=== PATIENT | male | born 1940 | race Caucasian/White ===

== ENCOUNTER 2017-09-05 13:07 | Outpatient (CLI) ==
--- NOTE | 2017-09-05 13:51 | US ---
EXAM: ULTRASOUND CAROTID DUPLEX, BILATERAL HISTORY: Dizziness FINDINGS: Elmore-scale ultrasound, color Doppler and spectral analysis was performed. Velocities are in meters per second. By elmore scale and color Doppler imaging, there were regions of heterogeneous plaque formation identif ied within the carotid bulbs and internal carotid arteries. These regions of plaque appeared to summer in easily less than 50% vessel diameter. RIGHT: External carotid artery peak systolic velocity: 0.9/0.1 Common carotid artery peak systolic velocity/end diastolic velocity: 0.8/0.2 Internal carotid artery peak systolic velocity: 0.7 ICA/CCA peak systolic velocity ratio: 0.8 ICA end diastolic velocity: 0.3 LEFT: External carotid artery peak systolic velocity: 0.9/0.1 Common carotid artery peak systolic velocity/end diastolic velocity: 0.7/0.2 Internal carotid artery peak systolic velocity: 0.6 ICA/CCA peak systolic velocity ratio: 0.8 ICA end diastolic velocity: 0.2 The right and left vertebral arteries were antegrade. IMPRESSION: 1. By elmore scale and color Doppler imaging, there were regions of heterogeneous plaque formation roxanne ntified within the carotid bulbs and internal carotid arteries. These regions of plaque appeared to remain easily less than 50% vessel diameter. 2. Internal carotid artery peak systolic velocities and ICA/CCA peak systolic velocity ratios indica te no hemodynamically significant stenosis bilaterally. 3. Both vertebral arteries were antegrade.
== END 2017-09-05 13:08 | disposition home or self-care (01) ==
LOC: RAD 13:07
PROVIDERS: ATTEND Family Medicine
DX: R09.89 Other specified symptoms and signs involving the circulatory and respiratory systems (principal)

== ENCOUNTER 2017-10-13 08:42 | Outpatient (CLI) ==
--- NOTE | 2017-10-13 12:06 | DI ---
EXAM: Single contrast esophagram. History: Dysphagia. Technique: Patient was given oral barium. Multiple spot films of the esophagus and gastroesophageal junction were obtained in various projections. Findings: Course of the esophagus is within normal limits. No mucosal lesions or filling defects id entified. No extravasation of contrast material. Large hiatal hernia. Gastroesophageal reflux was observed during the course of this examination. Impression: Large hiatal hernia with gastroesophageal reflux
== END 2017-10-13 08:43 | disposition home or self-care (01) ==
LOC: RAD 08:42
PROVIDERS: ATTEND Family Medicine
DX: R13.10 Dysphagia, unspecified (principal)

== ENCOUNTER 2018-03-19 13:12 | Outpatient (CLI) | END 2018-03-19 13:13 | disposition home or self-care (01) | LOC: FCC-LAB 13:12 | PROVIDERS: ATTEND Family Medicine | DX: K29.00 Acute gastritis without bleeding (principal) | CPT/HCPCS: 36415; 80053; 83690; 85027 ==

== ENCOUNTER 2018-03-20 09:57 | Outpatient (CLI) ==
--- NOTE | 2018-03-20 12:55 | US ---
EXAM: Right upper quadrant abdominal ultrasound. History: Elevated liver enzymes. Technique: Multiple sonographic images through the abdomen were obtained. Color duplex Doppler was used to interrogate vascular flow. Findings: The visualized pancreas demonstrates no gross abnormality. No abdominal ascites. Limited visualization of the right kidney demonstrates no evidence for hydronephrosis. The liver echotextur e is mildly coarsened. No focal liver lesions identified sonographically. There is antegrade flow w ithin the main portal vein. Status post cholecystectomy. Common bile duct measures 0.6 cm in calibe r. The liver is mildly enlarged. Impression: Mild hepatomegaly. Mild coarsening of the liver echotexture.
== END 2018-03-20 09:58 | disposition home or self-care (01) ==
LOC: RAD 09:57
PROVIDERS: ATTEND Family Medicine
DX: R74.0 Nonspecific elevation of levels of transaminase and lactic acid dehydrogenase [LDH] (principal)

== ENCOUNTER 2018-03-21 11:59 | Outpatient (CLI) | END 2018-03-21 12:00 | disposition home or self-care (01) | LOC: FCC-LAB 11:59 | PROVIDERS: ATTEND Family Medicine | DX: K29.00 Acute gastritis without bleeding (principal) | CPT/HCPCS: 87338 ==

== ENCOUNTER 2018-07-18 11:12 | Outpatient (CLI) | END 2018-07-18 11:13 | disposition home or self-care (01) | LOC: RHC-LAB 11:12 → FCC-LAB 11:13 | PROVIDERS: ATTEND Family Medicine | DX: M54.2 Cervicalgia (principal); M54.5 Low back pain; M25.561 Pain in right knee; M25.562 Pain in left knee; G89.29 Other chronic pain; Z51.81 Encounter for therapeutic drug level monitoring | CPT/HCPCS: 80306 ==